=== PATIENT | female | born 1995 | race Caucasian/White ===

== ENCOUNTER 2016-12-22 15:57 | Inpatient (IN) | payer MEDICAID, OTHER ==
[2016-12-22] VITALS (15 sets, daily range): BP systolic 130–165; BP diastolic 65–95; PULSE 56–83; RESP 18; TEMP 98.2
[~2016-12-22 15:57] MED LIST: PREN1CAP20; TUMS500C CHEW
[2016-12-22] MEDS ORDERED: DIPHTH/TETANUS/ACEL PERTUSSIS (BOOSTER) 0.5 ML VIAL/PFS IM ONE (16:00)
[2016-12-22] MEDS ORDERED: MEASLES, MUMPS, RUBELLA VACCINE 0.5 ML VIAL SQ ONE (16:00)
[2016-12-22] MEDS ORDERED: LACTATED RINGER'S 1000 ML INJ 1,000 ML IV PRN (16:41)
[2016-12-22] MEDS: LACTATED RINGER'S 1000 ML INJ 1,000 ML IV SCH (16:41)
[2016-12-22] MEDS ORDERED: LIDOCAINE HCL 1% 50 ML VIAL INFIL PRN (16:45)
[2016-12-22] MEDS ORDERED: NIFEdipine 10 MG CAP PO ONE (16:45)
[2016-12-22] MEDS ORDERED: MINERAL OIL 10 ML VIAL TOPICAL PRN (16:45)
[2016-12-22] MEDS ORDERED: CITRIC ACID-SODIUM CITRATE LIQ 30 ML UDC PO SCH (16:45)
[2016-12-22] MEDS ORDERED: SODIUM CHLORID 0.9% 500 ML INJ 500 ML IV PRN (16:45)
[2016-12-22] MEDS ORDERED: LIDOCAINE HCL 1% 50 ML VIAL I-DERMAL PRN (16:45)
[2016-12-22] MEDS ORDERED: OXYTOCIN 30 UNITS-500ML PREMIX 500 ML IV ONE (16:45)
[2016-12-22] MEDS ORDERED: PENICILLIN G POTASSIUM INJ 5,000,000 UNITS in SODIUM CHLORIDE 0.9% INJ 100 ML IV ONE (17:00)
[2016-12-22] MEDS ORDERED: OXYTOCIN 30 UNITS-500ML PREMIX 500 ML IV SCH (17:00)
[2016-12-22] MEDS ORDERED: SODIUM CHLOR 0.9% 1000 ML INJ 1,000 ML IV PRN (17:01)
[2016-12-22 17:12] LABS: BLOOD, URINE NEG (NEG); COMMENT (UR) CULT NOT INDICATED; CULTURE IF INDICATED CULT NOT INDICATED; GLUCOSE,URINE NEG (NEG); KETONE, URINE NEG (NEG); MUCUS URINE FEW /lpf (OCC); NITRITE,URINE NEG (NEG); PH, URINE 7.5 (5.0-8.5); SQUAMOUS EPITHELIAL CELL URINE <1 /hpf (0-5); URINE COLOR LIGHT-YELLOW (YELLW/STRAW)
[2016-12-22 17:13] LABS: AUTOMATED NEUTROPHIL # 12.5 TH/MM3 (1.8-7.7); BASOPHIL % 0.1 % (0.0-2.0); EOSINOPHIL # 0.1 TH/MM3 (0-0.4); EOSINOPHIL % 0.7 % (0.0-4.0); HEMATOCRIT 40.7 % (35.0-46.0); HEMO FLAGS DIFF FINAL; LYMPH % 8.9 % (9.0-44.0); LYMPHOCYTE # 1.4 TH/MM3 (1.0-4.8); MEAN CELL VOLUME 86.8 FL (80.0-100.0); MEAN CORPUSCULAR HEMOGLOBIN 28.6 PG (27.0-34.0); MONO % 8.7 % (0.0-8.0); NEUT % 81.6 % (16.0-70.0); PLATELET COUNT 192 TH/MM3 (150-450); RED BLOOD COUNT 4.69 MIL/MM3 (4.00-5.30); RED CELL DISTRIBUTION WIDTH 13.5 % (11.6-17.2); WHITE BLOOD COUNT 15.3 TH/MM3 (4.0-11.0)
--- NOTE | 2016-12-22 17:21 | HHI.HP ---
HPI Travel History International Travel<30 Days: No Contact w/Intl Traveler<30Days: No Known Affected Area: No History of Present Illness HPI This patient is a 21-year-old 2 para 1001 EDC is December 21, 2016 presently at 40 weeks and 1 day she presents with onset of irregular contractions no ruptured membranes no vaginal bleeding she did pass her mucous plug earlier today last time she was seen in the office she was 2-3 cm dilated 100% effaced care with care for women course is significant for positive group B strep History Past Medical History Narrative Medical No known drug allergy Obstetric History Obstetric History July 2013 female weight 7 lbs. 1 oz. vaginal delivery Past Surgical History Narrative Surgical Heart ablation due to supraventricular tachycardia per the patient Family History Narrative Family History Mother with heart disease Social History Alcohol Use: No Tobacco Use: No Substance Abuse: No Allergies-Medications (Allergen,Severity, Reaction): Coded Allergies: No Known Allergies (Unverified , 12/20/16) Home Meds Reported Medications Calcium Carbonate (Antacid) (Tums)500 Mg [id number] Mg CHEW PRN (HEARTBURN) Ref 0 11/23/16 W/O Vit A W/ Fe Carbo (Prenate Mini 18-0.6-0.4-350 mg)1 Cap Cap 08/17/16 Review of Systems Gastrointestinal: Abdominal Pain (irregular contractions) Physical Exam Vital Signs Date Time Temp Pulse Resp B/P Pulse Ox O2 Delivery O2 Flow Rate FiO2 12/22/16 16:54 83 147/86 Narrative GENERAL: Well-nourished, well-developed patient. Alert oriented 3 and cooperative in no acute distress SKIN: Warm and dry. HEAD: Normocephalic and atraumatic. EYES: No scleral icterus. No injection or drainage. ENT: No nasal drainage noted. Mucous membranes pink. Airway patent. NECK: Supple, trachea midline. No JVD. CARDIOVASCULAR: Regular rate and rhythm without murmurs, gallops, or rubs. RESPIRATORY: Breath sounds equal bilaterally. No accessory muscle use. ABDOMEN/GI: Gravid term estimated weight 7 pounds Gravid to [-] weeks size term Fundal Height: [-] GENITOURINARY: External Genitalia: intact and normal in appearance BUS glands: [-] Cervix: [-] Posterior soft Dilatation: [-] 6 cm Effacement: [-] 80% effaced Station: [-] -2 Presentation: [-] Vertex Membranes: [intact Uterine Contractions: [-] Irregular FHT's: Category: [-] 1 Baseline: [-]140 Reactive: [-] + Variability: [-] Moderate [id number] variability Decels: [-] 0 EXTREMITIES: No cyanosis or edema. 2+ reflexes NEUROLOGICAL: Awake and alert. Motor and sensory grossly within normal limits. Five out of 5 muscle strength in all muscle groups. Normal speech. Data Data Vital Signs Reviewed: Yes (blood pressures 151/83 she is afebrile) Orders Ob (2e) Additional Admit Info (12/22/16 16:27) Admit To Inpatient (12/22/16 ) Code Status (12/22/16 16:41) Vital Signs (Adult) .Per protocol (12/22/16 16:41) ^ Heart (12/22/16 16:41) ^ Amnioinfusion (12/22/16 16:41) Urinary Catheter Management .ONCE (12/22/16 16:41) Diet Npo (12/22/16 Dinner) Lactated Ringer's 1000 Ml Inj (Lr 1000 M (12/22/16 16:41) Lactated Ringer's 1000 Ml Inj (Lr 1000 M (12/22/16 16:41) Sodium Chlorid 0.9% 500 Ml Inj (Ns 500 M (12/22/16 16:45) Sodium Chlor 0.9% 1000 Ml Inj (Ns 1000 M (12/22/16 17:01) Lidocaine 1% Inj (50 Ml) (Xylocaine 1% I (12/22/16 16:45) Citric Acid-Sodium Citrate Liq (Bicitra (12/22/16 16:45) Fentanyl Inj (Fentanyl Inj) (12/22/16 16:45) Fentanyl Inj (Fentanyl Inj) (12/22/16 16:45) Penicillin G Potassium Inj (Pfizerpen-G (12/22/16 17:00) Penicillin G Potassium Inj (Pfizerpen-G (12/22/16 21:00) Complete Blood Count With Diff (12/22/16 16:41) Hold Clot (12/22/16 16:41) Abo/Rh Blood Type (12/22/16 16:41) Urinalysis - C+S If Indicated (12/22/16 16:41) Resp Oxygen Non Rebreathe Mask (12/22/16 ) ^ Epidural / Intrathecal Infus (12/22/16 16:41) Oxytocin 30 Units-500ml Premix (Pitocin (12/22/16 16:45) Lidocaine 1% Inj (50 Ml) (Xylocaine 1% I (12/22/16 16:45) Light Mineral Oil (Muri-Lube Oil) (12/22/16 16:45) Comprehensive Metabolic Panel (12/22/16 16:41) Uric Acid (12/22/16 16:41) Protein Creat Ratio, Random Ur (12/22/16 16:41) Nifedipine (Procardia) (12/22/16 16:45) ^ Non Stress Test (12/22/16 16:50) Response To Medication .Post New Med Administration, Reaction (12/22/16 16:50) ^ Discontinue Medication (12/22/16 16:50) Oxytocin 30 Units-500ml Premix (Pitocin (12/22/16 17:00) Labs Laboratory Tests Test 12/22/16 16:43 White Blood Count 15.3 Red Blood Count 4.69 Hemoglobin 13.4 Hematocrit 40.7 Mean Corpuscular Volume 86.8 Mean Corpuscular Hemoglobin 28.6 Mean Corpuscular Hemoglobin 33.0 Concent Red Cell Distribution Width 13.5 Platelet Count 192 Mean Platelet Volume 9.7 Neutrophils (%) (Auto) 81.6 Lymphocytes (%) (Auto) 8.9 Monocytes (%) (Auto) 8.7 Eosinophils (%) (Auto) 0.7 Basophils (%) (Auto) 0.1 Neutrophils # (Auto) 12.5 Lymphocytes # (Auto) 1.4 Monocytes # (Auto) 1.3 Eosinophils # (Auto) 0.1 Basophils # (Auto) 0.0 CBC Comment DIFF FINAL Differential Comment Urine Color LIGHT-YELLOW Urine Turbidity CLEAR Urine pH 7.5 Urine Specific [place] 1.006 Urine Protein NEG Urine Glucose (UA) NEG Urine Ketones NEG Urine Occult Blood NEG Urine Nitrite NEG Urine Bilirubin NEG Urine Urobilinogen LESS THAN 2.0 Urine Leukocyte Esterase NEG Urine RBC LESS THAN 1 Urine WBC LESS THAN 1 Urine Squamous Epithelial <1 Cells Urine Mucus FEW Microscopic Urinalysis Comment CULT NOT INDICATED Assessment/Plan Assessment and Plan Assessment; 21-year-old at 40 weeks and 1 day Postdates Active labor Group B strep positive History of a heart ablation Plan; admit IV fluid hydration CBC type and screen Penicillin for group B strep coverage Pitocin augmentation of labor Anticipate vaginal delivery Nadja Moore MD Dec 22, 2016 17:21
[2016-12-22 17:24] LABS: ANION GAP 10 MEQ/L (5-15); AST (GOT) 23 U/L (15-37); BICARBONATE 22.5 MEQ/L (21.0-32.0); BLOOD UREA NITROGEN 6 MG/DL (7-18); CHLORIDE 108 MEQ/L (98-107); GLOMERULAR FILTRATION RATE 130 ML/MIN (>89); SODIUM (NA) 140 MEQ/L (136-145)
[2016-12-22 17:26] LABS: ALKALINE PHOSPHATASE 151 U/L (45-117); ALT (GPT) 27 U/L (10-53); TOTAL BILIRUBIN ADULT 0.2 MG/DL (0.2-1.0); URIC ACID 4.2 MG/DL (2.6-6.0)
--- NOTE | 2016-12-22 17:49 | PD.LABORPN ---
Subjective Subjective Patient feeling pressure with her contractions Objective Vital Signs Vital Signs Date Time Temp Pulse Resp B/P Pulse Ox O2 Delivery O2 Flow Rate FiO2 12/22/16 17:38 71 138/78 12/22/16 16:54 83 147/86 Objective Pelvic Exam: Cervix: [-] Midline Dilatation: [-] 8 cm Effacement: [-] 100% effaced Station: [-] -1 station Presentation: [-] Vertex Membranes: ruptured] clear fluid Uterine Contractions: [-] Every 2-3 FHT's: Category: [-] 1 Baseline: [-] 130 Reactive: [-] + Accelerations up to 150 Variability: [-] Moderate Decels: [-] Occasional early to variable Assessment/Plan Assessment and Plan Assessment; term Rapid progress of labor Plan anticipate vaginal delivery; Nadja Moore MD Dec 22, 2016 17:49
--- NOTE | 2016-12-22 18:36 | PD.OB.DELI ---
Delivery Date: Dec 22, 2016 Anesthesia: None Episiotomy: None Vaginal Delivery: Normal Presentation: Occiput anterior Nuchal Cord: None Delayed cord clamping (45 sec): Yes Infant: Female One Minute : 8 Five Minute : 9 Weight: 3160 Care: Suctioned, Spontaneous crying Placenta: Spontaneous delivery Additional Information This 21-year-old G2 now P2 progressed in labor after artificial rupture of membranes and clear fluid rapidly progressed to completely dilated completely effaced after the bladder was emptied of 600 cc she delivered over an intact perineum a viable female weight 7 pounds even equaling 3160 grams placenta showed a very short cord. This may have been the reason for the deceleration . Placenta delivered spontaneously intact with three-vessel cord Uterus firm no active bleeding Estimated blood loss less than 350 cc Sponge and estimate count were correct Minor laceration primary skin separation no bleeding no repair Patient tolerated the delivery well mother stable baby stable Nadja Moore MD Dec 22, 2016 18:36
[2016-12-22] MEDS ORDERED: SODIUM CHLORIDE 0.9% FLUSH 5 ML FLUSH IV PRN (18:45)
[2016-12-22] MEDS ORDERED: ZOLPIDEM TARTRATE 5 MG TAB PO PRN (18:45)
[2016-12-22] MEDS ORDERED: ALUMINUM/MAGNESIUM/SIMETH 30 ML CUP PO PRN (18:45)
[2016-12-22] MEDS ORDERED: ONDANSETRON ODT 4 MG TAB PO PRN (18:45)
[2016-12-22] MEDS ORDERED: WITCH HAZEL 50%/GLYCERIN 12.5% 40 PAD JAR TOPICAL PRN (18:45)
[2016-12-22] MEDS ORDERED: SODIUM CHLORIDE 0.9% FLUSH 5 ML FLUSH IV SCH (21:00)
[2016-12-23] MEDS: LACTATED RINGER'S 1000 ML INJ 1,000 ML IV SCH (00:41)
[2016-12-23] MEDS: PENICILLIN G POTASSIUM INJ 2,500,000 UNITS in SODIUM CHLORIDE 0.9% INJ 100 ML IV SCH ×2 (01:00→04:20)
[2016-12-23] MEDS: IBUPROFEN 600 MG TAB PO PRN ×3 (01:34→15:19)
[2016-12-23] MEDS: ACETAMINOPHEN 325 MG TAB PO PRN ×3 (01:34→15:19)
--- NOTE | 2016-12-23 07:52 | HHI.OB ---
Subjective Post Day: 1 Remarks day # 1. AFVSS overnight. Pain controlled. Decreased lochia. Denies dysuria. No breast tenderness. She is feeding the baby via breast. Appetite good. No nausea or vomiting. Positive flatus. Negative bowel movement. Ambulating well. Denies calf pain, shortness of breath, or cough. Otherwise, she is doing well this morning and has no other complaints. Objective Vitals/I&O Vital Signs Date Time Temp Pulse Resp B/P Pulse Ox O2 Delivery O2 Flow Rate FiO2 12/22/16 19:46 63 130/65 12/22/16 19:35 18 12/22/16 19:31 58 136/80 12/22/16 19:20 18 12/22/16 19:17 60 143/70 12/22/16 19:05 18 12/22/16 19:05 98.2 12/22/16 19:01 56 159/93 12/22/16 18:46 63 151/83 12/22/16 18:36 68 143/95 12/22/16 18:35 18 12/22/16 18:32 65 163/82 12/22/16 18:31 64 165/84 12/22/16 18:01 72 155/76 12/22/16 17:38 71 138/78 12/22/16 16:54 83 147/86 Objective Remarks GENERAL: Well-nourished, well-developed patient. CARDIOVASCULAR: Regular rate and rhythm without murmurs, gallops, or rubs. RESPIRATORY: Breath sounds equal bilaterally. No accessory muscle use. ABDOMEN/GI: Abdomen soft, non-tender. Fundus: Firm, non-tender at umbilicus. GENITOURINARY: Light to moderate bleeding. EXTREMITIES: No cyanosis or edema, non-tender, without signs of DVT. Medications and IVs Current Medications Medications (Trade) Dose Ordered Sig/Dasha Route Start Time Stop Time Status Last Admin Lactated Ringer's 1,000 ml @ 125 mls/hr Q8H IV 12/22/16 16:41 12/22/16 16:41 Lactated Ringer's 1,000 ml @ 3,000 mls/hr Q20M PRN IV 12/22/16 16:41 (NS 1000 ml Inj) 1,000 ml @ 100 mls/hr Q10H PRN IV 12/22/16 17:01 (fentaNYL INJ) 50 mcg Q1H PRN IV PUSH 12/22/16 16:45 Fentanyl Citrate 100 mcg 100 mcg Q1H PRN IV PUSH 12/22/16 16:45 (Pfizerpen-G Inj/ NS Inj) 100 ml @ 200 mls/hr Q4H IV 12/22/16 21:00 Mineral Oil 10 ml 10 ml UNSCH PRN TOPICAL 12/22/16 16:45 (Pitocin 30 Units-NS 500 ml Premix) 500 ml @ 0 mls/hr TITRATE IV 12/22/16 17:00 12/22/16 17:28 (NS Flush) 2 ml BID IV 12/22/16 21:00 (NS Flush) 2 ml UNSCH PRN IV 12/22/16 18:45 (Tylenol) 650 mg Q4H PRN PO 12/22/16 18:45 12/23/16 01:34 (Motrin) 600 mg Q6H PRN PO 12/22/16 18:45 12/23/16 01:34 (Tucks Pads) 1 applic QID PRN TOPICAL 12/22/16 18:45 12/23/16 01:34 (Ambien) 5 mg HS PRN PO 12/22/16 18:45 (Mag-Al Plus Susp Liq) 15 ml Q8H PRN PO 12/22/16 18:45 (Zofran Odt) 4 mg Q6H PRN PO 12/22/16 18:45 Assessment/Plan Problem List: (1) care following vaginal delivery Assessment and Plan 21 y/o female who is PPD# 1 s/p . -Continue routine care. -Percocet and Motrin PRN pain. -Encouraged OOB. Advised pelvic rest for 6 wks. -Will need a f/u appt. within 6 wks. -Re: ctrl, she is undecided at this time. -D/c in 1-2 more days. wdw OB attending Discharge Planning Discharge anticipated for tomorrow Eulogio Scott MD R2 Dec 23, 2016 07:52
[2016-12-23] MEDS ORDERED: IBUP-232 PO (08:07)
[2016-12-23] MEDS ORDERED: MAG-LIQ PO (08:07)
--- NOTE | 2016-12-23 08:08 | HHI.DCPOC ---
Discharge Care Plan Diagnosis: (1) care following vaginal delivery Report Symptoms to Your Doctor -Temperate above 100.5 degrees -Redness, of incision or excessive or foul smelling drainage -Unusual pain or calf pain -Increased vaginal bleeding -Painful or difficulty urinating -Feelings of extreme sadness or anxiety after 2 weeks Goals to Promote Your Health * To prevent worsening of your condition and complications * To maintain your health at the optimal level Follow up with OB in 6 weeks Pelvic rest for 6 weeks Directions to Meet Your Goals Take your medications as prescribed Follow your dietary instruction Follow activity as directed Ensure plenty of rest for recovery Drink fluids for hydration Keep your appointments as scheduled Take your immunizations and boosters as scheduled If your symptoms worsen call your PCP, if no PCP go to Urgent Care Center or Emergency Room Smoking is Dangerous to Your Health. Avoid second hand smoke Call the 24-hour crisis hotline for domestic abuse at Eulogio Scott MD R2 Dec 23, 2016 08:08
[2016-12-23 08:20] VITALS: BP 130/78; PULSE 80
[2016-12-23 08:21] VITALS: RESP 18; TEMP 98
[2016-12-23 22:00] VITALS: BP 131/85; PULSE 72; RESP 16; TEMP 98
[2016-12-24] MEDS: ACETAMINOPHEN 325 MG TAB PO PRN ×3 (01:00→09:37)
[2016-12-24] MEDS: IBUPROFEN 600 MG TAB PO PRN ×3 (01:00→09:37)
[2016-12-24 08:02] VITALS: BP_SYST 110; BP_SYST 128; BP_DIAS 69; BP_DIAS 75; PULSE 72; PULSE 79; RESP 16; TEMP 97.5; TEMP 98.5
[2016-12-24] MEDS ORDERED: SPRI28TA PO (09:00)
--- NOTE | 2016-12-24 09:04 | HHI.OB ---
Subjective Post Day: 2 Remarks Pt seen and examined this morning. day # 2 AFVSS overnight. Decreased lochia. Denies dysuria. No breast tenderness. She is feeding the baby via breast. Appetite good. No nausea or vomiting. Patient has not yet had a bowel movement. +flatus. Ambulating well. Denies calf pain or shortness of breath. Otherwise, she is doing well this morning and has no other concerns. ( Juanito Robles MD R2) Remarks Patient seen and evaluated with resident under direct supervision, agree with assessment and plan. (Trav Harley MD) Objective Vitals/I&O Vital Signs Date Time Temp Pulse Resp B/P Pulse Ox O2 Delivery O2 Flow Rate FiO2 12/24/16 08:02 97.5 72 16 110/75 12/23/16 22:00 131/85 12/23/16 22:00 98.0 72 16 Objective Remarks GENERAL: Well-nourished, well-developed patient. CARDIOVASCULAR: Regular rate and rhythm without murmurs, gallops, or rubs. RESPIRATORY: Breath sounds equal bilaterally. No accessory muscle use. ABDOMEN/GI: Abdomen soft, non-tender. Fundus: Firm, non-tender at umbilicus. GENITOURINARY: Light to moderate bleeding. EXTREMITIES: No cyanosis or edema, non-tender, without signs of DVT. Medications and IVs Current Medications Medications (Trade) Dose Ordered Sig/Dasha Route Start Time Stop Time Status Last Admin Lactated Ringer's 1,000 ml @ 125 mls/hr Q8H IV 12/22/16 16:41 12/22/16 16:41 Lactated Ringer's 1,000 ml @ 3,000 mls/hr Q20M PRN IV 12/22/16 16:41 (NS 1000 ml Inj) 1,000 ml @ 100 mls/hr Q10H PRN IV 12/22/16 17:01 (fentaNYL INJ) 50 mcg Q1H PRN IV PUSH 12/22/16 16:45 Fentanyl Citrate 100 mcg 100 mcg Q1H PRN IV PUSH 12/22/16 16:45 (Pfizerpen-G Inj/ NS Inj) 100 ml @ 200 mls/hr Q4H IV 12/22/16 21:00 Mineral Oil 10 ml 10 ml UNSCH PRN TOPICAL 12/22/16 16:45 (Pitocin 30 Units-NS 500 ml Premix) 500 ml @ 0 mls/hr TITRATE IV 12/22/16 17:00 12/22/16 17:28 (NS Flush) 2 ml BID IV 12/22/16 21:00 (NS Flush) 2 ml UNSCH PRN IV 12/22/16 18:45 (Tylenol) 650 mg Q4H PRN PO 12/22/16 18:45 12/24/16 01:00 (Motrin) 600 mg Q6H PRN PO 12/22/16 18:45 12/24/16 01:00 (Tucks Pads) 1 applic QID PRN TOPICAL 12/22/16 18:45 12/23/16 01:34 (Ambien) 5 mg HS PRN PO 12/22/16 18:45 (Mag-Al Plus Susp Liq) 15 ml Q8H PRN PO 12/22/16 18:45 (Zofran Odt) 4 mg Q6H PRN PO 12/22/16 18:45 (Juanito Robles MD R2) Assessment/Plan Problem List: (1) care following vaginal delivery Assessment and Plan 21 y/o female who is PPD# 2 s/p . -Continue routine care. -Percocet and Motrin PRN pain. -Encouraged OOB. Advised pelvic rest for 6 wks. -Will need a f/u appt. within 6 wks. -Re: ctrl, she would like to be discharged with OCP. -D/c later today. wdw Dr. Harley Discharge Planning Discharge anticipated for tomorrow (Juanito Robles MD R2) Juanito Robles MD R2 Dec 24, 2016 09:04 Trav Harley MD Dec 25, 2016 10:15
[2017-01-27] MEDS ORDERED: NORE0.354 PO (10:46)
== END 2016-12-24 14:10 | disposition home or self-care (01) | DRG 775 ==
LOC: HOBED 15:57 → H2EB 16:29 → H1EA 22:14
PROVIDERS: ADMIT Obstetrics & Gynecology; ATTEND Obstetrics & Gynecology
PROC: 10907ZC Drainage of Amniotic Fluid, Therapeutic from Products of Conception, Via Natural or Artificial Opening (ICD-10-PCS; principal; 2016-12-22)
PROC: 10E0XZZ Delivery of Products of Conception, External Approach (ICD-10-PCS; 2016-12-22)
DX: O69.3XX1 Labor and delivery complicated by short cord, fetus 1 (principal); O99.824 Streptococcus B carrier state complicating childbirth; Z37.0 Single live birth; Z3A.40 40 weeks gestation of pregnancy
CPT/HCPCS: 80053; 81001; 82570; 84156; 84550; 85025; 86900; 86901; 90715; 99285; J2540; J2590; J7120